=== PATIENT | male | born 1970 | race Caucasian/White ===

== ENCOUNTER 2017-02-24 04:00 | Emergency (ER) | payer MEDICAID ==
[~2017-02-24] VITALS: Ht 170.2 cm; Wt 99.8 kg
[2017-02-24 04:30] VITALS: BP_SYST 117
--- NOTE | 2017-02-24 04:30 | NUR ---
Patient to ER bed 3 to gown for evaluation. Side rails up. Report given to DANIAL SCHWAB.
--- NOTE | 2017-02-24 04:35 | NUR ---
Patient AAO x4, sitting in bed, c/o 10/10 bilateral lower back pain that radiates to Left neck . Denies N/V/D, patient afebrile. Denies chest pain, denies shortness of breath. No acute distress noted. Vital signs stable. Will continue to monitor.
--- NOTE | 2017-02-24 04:47 | NUR ---
ER at bedside examining patient.
[2017-02-24] MEDS ORDERED: NACL 0.9% 1,000 ML IV ONE (04:52)
[2017-02-24] MEDS ORDERED: KETOROLAC TROMETHAMINE 30 MG VIAL IVP ONE (05:00)
--- NOTE | 2017-02-24 05:05 | NUR ---
# 18 gauge angiocath placed to L ARM. Use of asceptic technique. Opsite placed over site. Blood return noted. Two patient identifiers. Blood for lab drawn from site. Flushed with 10 cc of normal saline. No evidence of infiltration noted. Patient tolerated well.
[2017-02-24 05:38] LABS: BASOPHILS % (AUTO) 0.7 % (0.0-2.0); EOSINOPHILS # (AUTO) 0.1 K/uL (0.0-0.4); EOSINOPHILS % (AUTO) 2.1 % (0.0-4.0); HEMATOCRIT 48.2 % (36-54); HEMOGLOBIN 15.9 g/dL (14.0-18.0); LYMPHOCYTES # (AUTO) 1.4 K/uL (1.0-5.5); LYMPHOCYTES % (AUTO) 25.1 % (20.5-51.5); MEAN CORPUSCULAR HEMOGLOBIN 29 pg (27-31); MEAN CORPUSCULAR HGB CONC 33 % (32-36); MEAN CORPUSCULAR VOLUME 88 fL (79.0-98.0); MONOCYTES # (AUTO) 0.3 K/uL (0.0-1.0); MONOCYTES % (AUTO) 5.9 % (1.7-9.3); NEUTROPHILS # (AUTO) 3.8 K/uL (1.8-7.7); NEUTROPHILS % (AUTO) 66.2 % (40.0-70.0); PLATELET COUNT (AUTO) 202 K/uL (130-430); RED BLOOD CELL COUNT(AUTO) 5.49 MIL/uL (4.2-6.2); RED CELL DISTRIBUTION WIDTH 12.8 % (9.0-15.0); WHITE BLOOD COUNT (AUTO) 5.6 K/uL (4.8-10.8)
[2017-02-24 05:43] LABS: CALCIUM 8.3 mg/dL (8.4-11.0); CREATININE 0.83 mg/dL (0.55-1.30)
[2017-02-24 05:48] LABS: ALBUMIN 3.5 g/dL (3.4-4.8); TOTAL BILIRUBIN 0.8 mg/dL (0.0-1.0); TOTAL PROTEIN, SERUM 6.6 g/dL (6.4-8.3)
[2017-02-24 06:00] LABS: PROTHROMBIN TIME 10.6 SECS (9.5-12.5)
--- NOTE | 2017-02-24 06:00 | NUR ---
Patient resting quietly. No acute distress noted. Vital signs within normal range.
--- NOTE | 2017-02-24 07:00 | NUR ---
Patient unable to provide urine for UA at this time. Given urinal. States he will let us know when he has a sample.
--- NOTE | 2017-02-24 07:10 | NUR ---
Report given to DANIAL Ramirez: All care endorsed.
--- NOTE | 2017-02-24 07:31 | NUR ---
PT VOIDED AND SAMPLE SENT TO LAB FOR TEST.
--- NOTE | 2017-02-24 07:32 | NUR ---
DR DOMINGUEZ WENT TO SEE PT AGAIN REGARDING HIS LAB RESULT.
[2017-02-24] MEDS ORDERED: HYDROmorphone 1 MG INJ. 1 MG/ML AMPUL IVP ONE (07:45)
[2017-02-24] MEDS ORDERED: ONDANSETRON HCL 4 MG/2 ML VIAL IVP ONE (07:45)
--- NOTE | 2017-02-24 07:54 | NUR ---
MEDICATED PT WITH ZOFRAN 8 MG IVP THEN DILAUDID 1 MG IV FOR LOW BACK PAIN.
[2017-02-24 08:07] LABS: BILIRUBIN,URINE NEGATIVE (NEGATIVE); BLOOD, URINE NEGATIVE (NEGATIVE); CLARITY/URINE CLEAR (CLEAR); COLOR,URINE YELLOW (YELLOW); GLUCOSE,URINE 3+ (NEGATIVE); KETONES,URINE NEGATIVE (NEGATIVE); LEUKOCYTE ESTERASE ,URINE NEGATIVE (NEGATIVE); NITRITE, URINE NEGATIVE (NEGATIVE); PROTEIN URINE NEGATIVE (NEGATIVE); UROBILINOGEN,URINE 0.2 (0.2-1.0)
[2017-02-24 08:24] LABS: BARBITURATE, URINE NEGATIVE (NEG <=200); BENZODIAZEPINE, URINE NEGATIVE (NEG <=150); CANNABINOID, URINE NEGATIVE (NEG <=50); COCAINE, URINE NEGATIVE (NEG <=150); METHAMPHETAMINES SCREEN,URINE NEGATIVE (NEG <=500); OPIATE, URINE NEGATIVE (NEG <=100); PHENCYCLIDINE SCREEN,URINE NEGATIVE (NEG <=25); UR TRICYCLIC ANTIDEPRESSANTS NEGATIVE (NEG <=300); URINE AMPHETAMINE NEGATIVE (NEG <=500); URINE METHADONE NEGATIVE (NEG <=200); URINE OXYCODONE SCREEN NEGATIVE (NEG <=100); URINE PROPOXYPHENE SCREEN NEGATIVE (NEG <=300)
--- NOTE | 2017-02-24 08:30 | NUR ---
PT HEARD SNORING AT THIS TIME.
--- NOTE | 2017-02-24 08:55 | NUR ---
Patient given written and verbal discharge instructions and verbalizes understanding. ER MD DOMINGUEZ discussed with patient the results and treatment provided. Patient in stable condition. ID arm band removed. IV catheter removed intact and dressing applied, no active bleeding. Rx of FLEXERIL, METFORMIN, TRAMADOL given. Patient educated on pain management and to follow up with PMD. Pain Scale 0. Opportunity for questions provided and answered.
== END 2017-02-24 08:59 | disposition home or self-care (01) ==
LOC: SED 04:00
DX: M54.5 Low back pain (principal); E11.9 Type 2 diabetes mellitus without complications; Z91.041 Radiographic dye allergy status
CPT/HCPCS: 36415; 72131; 74176; 80053; 80307; 81003; 82150; 83690; 85025; 85610; 85730; 96361; 96374; 96375; 99285; J1170; J1885; J2405; J7030

== ENCOUNTER 2018-02-28 09:00 | Emergency (ER) | payer SELFPAY ==
[~2018-02-28] VITALS: Ht 170.2 cm; Wt 95.3 kg
[2018-02-28 09:03] VITALS: BP_SYST 141
[2018-02-28 09:11] VITALS: BP_SYST 141
== END 2018-02-28 09:11 | disposition home or self-care (01) ==
LOC: SED 09:00
DX: B86 Scabies (principal); R03.0 Elevated blood-pressure reading, without diagnosis of hypertension; E11.9 Type 2 diabetes mellitus without complications; Z91.041 Radiographic dye allergy status
CPT/HCPCS: 99282

== ENCOUNTER 2019-12-27 16:25 | Emergency (ER) | payer SELFPAY ==
[~2019-12-27] VITALS: Ht 170.2 cm; Wt 90.7 kg
[2019-12-27 16:42] VITALS: BP_SYST 139
[2019-12-27] MEDS ORDERED: cefTRIAXone 1 GM VIAL IM ONE (18:00)
[2019-12-27 18:23] VITALS: BP_SYST 126
[2019-12-27] MEDS ORDERED: LIDOCAINE 1%, 20 ML MDV 20 ML ONE (18:25)
== END 2019-12-27 18:23 | disposition home or self-care (01) ==
LOC: SED 16:25
DX: K11.8 Other diseases of salivary glands (principal); E11.9 Type 2 diabetes mellitus without complications; Z88.8 Allergy status to other drugs, medicaments and biological substances
CPT/HCPCS: 96372; 99283; J0696; J2001

== ENCOUNTER 2019-12-30 19:40 | Emergency (ER) | payer MEDICAID ==
[~2019-12-30] VITALS: Ht 170.2 cm; Wt 90.7 kg
[2019-12-30 19:52] VITALS: BP_SYST 128
[2019-12-30] MEDS ORDERED: NACL 0.9% 1,000 ML IV ONE (21:30)
[2019-12-30] MEDS ORDERED: MORPHINE 4 MG/ML INJ. SYRINGE IVP ONE (21:30)
[2019-12-30] MEDS ORDERED: AMPICILLIN SODIUM/SULBACTAM NA 3 GM VIAL IM ONE (21:30)
[2019-12-30 21:43] LABS: BASOPHILS % (AUTO) 0.6 % (0.0-2.0); EOSINOPHILS # (AUTO) 0.1 K/uL (0.0-0.4); EOSINOPHILS % (AUTO) 1.3 % (0.0-4.0); HEMATOCRIT 49.2 % (36-54); LYMPHOCYTES # (AUTO) 1.6 K/uL (1.0-5.5); LYMPHOCYTES % (AUTO) 30.6 % (20.5-51.5); MEAN CORPUSCULAR HEMOGLOBIN 30 pg (27-31); MEAN CORPUSCULAR HGB CONC 34 % (32-36); MEAN CORPUSCULAR VOLUME 87 fL (79.0-98.0); MONOCYTES # (AUTO) 0.5 K/uL (0.0-1.0); MONOCYTES % (AUTO) 10.3 % (1.7-9.3); NEUTROPHILS # (AUTO) 2.9 K/uL (1.8-7.7); NEUTROPHILS % (AUTO) 57.2 % (40.0-70.0); PLATELET COUNT (AUTO) 227 K/uL (130-430); RED BLOOD CELL COUNT(AUTO) 5.65 MIL/uL (4.2-6.2); RED CELL DISTRIBUTION WIDTH 13.5 % (9.0-15.0); WHITE BLOOD COUNT (AUTO) 5.1 K/uL (4.8-10.8)
[2019-12-30] MEDS ORDERED: AMPICILLIN SODIUM/SULBACTAM NA 3 GM VIAL IV ONE (22:00)
[2019-12-30 22:03] LABS: CALCIUM 8.9 mg/dL (8.4-11.0); CREATININE 0.94 mg/dL (0.55-1.30); POTASSIUM 3.7 mmol/L (3.5-5.1)
[2019-12-30] MEDS ORDERED: IOHEXOL 100 ML IV ONE (22:04)
[2019-12-30 22:10] LABS: ALBUMIN 3.8 g/dL (3.4-4.8); TOTAL BILIRUBIN 0.7 mg/dL (0.0-1.0)
[2019-12-31] MEDS ORDERED: metroNIDAZOLE 500 mg/NS 100 ML IV ONE ×2 (04:45)
[2019-12-31] MEDS ORDERED: MORPHINE 4 MG/ML INJ. SYRINGE IVP ONE (07:00)
[2019-12-31 10:25] VITALS: BP_SYST 114
== END 2019-12-31 10:25 | disposition short-term general hospital (02) ==
LOC: SED 19:40
DX: K12.2 Cellulitis and abscess of mouth (principal); E11.9 Type 2 diabetes mellitus without complications; Z88.6 Allergy status to analgesic agent
CPT/HCPCS: 36415; 70487; 80053; 82962; 85025; 96365; 96367; 96375 ×2; 99285; J0295; J2270 ×2; J3490; J7030; Q9967